=== PATIENT | female | born 2005 | race African-American/Black ===

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

== ENCOUNTER 2024-01-08 06:13 | Emergency (ER) | payer OTHER, SELFPAY ==
[2024-01-08] VITALS (8 sets, daily range): BP systolic 94–114; BP diastolic 65–91
[2024-01-08 07:03] LABS: % Basophils 0.5 % (0-2); % Eosinophils 1.9 % (0-6); % Immature Granulocytes 0.2 % (0-0.5); % Lymphocytes 41.6 % (20.5-51.1); % Monocytes 10.2 % (1.7-9.3); % Neutrophils 45.6 % (42.2-75.2); Absolute Eosinophils 0.1 10^3/uL (0-0.7); Absolute Lymphocytes 2.6 10^3/uL (1.2-3.4); Absolute Monocytes 0.7 10^3/uL (0.1-0.6); Absolute Neutrophils 2.9 10^3/uL (1.4-6.5); Hematocrit 46.1 % (37.0-47.0); Hemoglobin 16.1 g/dL (12.0-16.0); Mean Corp Hgb Conc. 34.9 g/dL (33.0-37.0); Mean Corpuscular Hgb 33.5 pg (27.0-31.0); Mean Corpuscular Volume 95.8 fL (81.0-99.0); Mean Platelet Volume 13.1 fL (7.4-10.4); Nucleated Red Blood Cells % 0 %; Platelet Count 162 10^3/uL (130-400); Red Blood Cell Count 4.81 10^6/uL (4.20-5.40); Red Cell Dist. Width 13.2 % (11.5-14.5); White Blood Cell Count 6.4 10^3/uL (4.8-10.8)
--- NOTE | 2024-01-08 07:22 | EDRN ---
resp messaged to come to bedside due low pulse ox 88-89%. Dr. Gonzalez made aware. Resp to suction and place on trach collar to help as pt decreased further to 85%.
[2024-01-08 07:34] LABS: Urine Albumin Negative (Neg - Trace); Urine Bilirubin Negative (Negative); Urine Character Clear (Clear); Urine Color Yellow; Urine Glucose Negative (Negative); Urine Ketone Negative (Negative); Urine Leukocyte 1+ (Negative); Urine Nitrite Negative (Negative); Urine Occult Blood Trace (Negative); Urine Urobilinogen Negative (Neg - 1+)
[2024-01-08] MEDS: KEPPRA 1000 MG IV ×2 (07:53→10:49)
[2024-01-08] MEDS: ATIVAN 1 MG IV ×2 (07:56→08:36)
[2024-01-08 08:21] LABS: Urine Bacteria Few (Negative)
[2024-01-08 08:22] LABS: Urine Red Blood Cell None Seen /HPF (0-2)
[2024-01-08 08:56] LABS: ALT (SGPT) 53 U/L (0-35); AST (SGOT) 36 U/L (14-36); Albumin 3.9 g/dl (3.5-5.0); Alkaline Phosphatase 145 U/L (38-126); Blood Urea Nitrogen 8 mg/dl (7-17); Calcium 9.7 mg/dl (8.4-10.2); Carbon Dioxide 33 mmol/L (22-30); Chloride 99 mmol/L (98-107); Glucose 79 mg/dl (70-99); Potassium 4.1 mmol/L (3.5-5.1); Sodium 141 mmol/L (135-145); Total Bilirubin 0.3 mg/dl (0.2-1.3); Total Protein 7.5 g/dl (6.3-8.2); eGFR > 60.00
--- NOTE | 2024-01-08 09:43 | ED.GENMED ---
Addendum entered and electronically signed by Carola Wall PA-C 01/11/24 07:47:
urine cx positive, sent to [facility]
faxed to [facility]
Original Note:
History of Present Illness
General
Chief Complaint: Seizure
Source: patient
Exam Limitations: none
Time Seen by Provider: 01/08/24 06:27
Nursing documentation reviewed up to this point in time: agreed with
History of Present Illness
History of Present Illness:
18-year-old female with a past medical history of encephalomalacia, seizure disorder, chronic trach/PEG who presents to the emergency room from pediatric specialty care center for evaluation of seizures. According to report from pediatric specialty
center patient has known history of seizures and this morning began having frequent 'cluster seizures'�they describe that she was having frequent episodes of rapid eye blinking and upper extremity tonic-clonic movements lasting about 10 seconds each
and happening every couple of minutes. She received her normal dose of vomiting this morning as well as diazepam x 2 (initial dose at 3:40 AM, second dose at 4:10 AM) still having seizures intermittently throughout the morning and so sent to the
ER. Has had some increased secretions. She also apparently has had issues with urinary retention recently had a Swartz that was removed and they have been doing intermittent straight catheterizations. Review of medication list shows that she takes
1500 mg Keppra daily in the a.m. and 1750 mg p.m.; she is also on clobazam 30 mg twice daily and as needed
Past History
Past History
ED Past Medical History: Seizures, Other (feeding tube, tracheostomy) and Other (Hydrocephalus)
ED Past Surgical History: Other (Feeding tube, tracheostomy)
Social History
Tobacco: Non-smoker
Alcohol: None
Drug: None
Personal: Single
Living: custodial
Review of Systems
Review of Systems
Unable to obtain full review of systems at this time due to: non-verbal
All Other Systems: Not applicable
Phy Exam
Physical Exam
Physical Exam:
General: Lying in bed alert, chronically ill appearing but not in acute distress
Head: Normocephalic, atraumatic
Eyes: Conjunctiva normal, pupils equal round and reactive to light bilaterally
Throat: Airway intact (tracheostomy in place), moist mucous membranes
Lungs: Clear to auscultation bilaterally, no wheezing, rales, rhonchi; frequent coughing with secretions frothing from tracheostomy
Heart: Regular rate and rhythm, no murmurs, gallops, or rubs
Abd: Soft, mild distention no apparent tenderness
Neuro: Alert, tracks with her eyes, nonverbal
Skin: no rash
Extremities: Warm well-perfused
Scores
Heart Failure Risk
Heart Failure Risk Score: Not Applicable
Heart Score for Chest Pain Patients
STEMI patient?: Not applicable
Withdrawal Assessment of Alcohol
Withdrawal Assessment Completed?: Not applicable
Course
Orders/Labs/Results
Orders:
Orders
01/08/24 06:54
Complete Blood Count/With Diff Urgent
01/08/24 06:55
CR Chest Portable - 1 View Urgent
Comment:
Reason For Exam: ^secretions, coughing
Reason Study Needs to be Portable: Unable to Transport
01/08/24 07:05
Urinalysis Reflex To Culture Urgent
Date Specimen was Collected: 01/08/24
Time Specimen was Collected: 07:02
Urine Microscopic Reflex Cult Urgent
Urine Culture Urgent
RAUL Source: U
Specimen Description:
Date Specimen was Collected: 01/08/24
Time Specimen was Collected: 07:02
01/08/24 07:43
Levetiracetam Injectable [Keppra] 1,000 mg IV NOW STA
Lorazepam [Ativan] 1 mg IV NOW STA
01/08/24 08:23
Comprehensive Metabolic Panel Urgent
01/08/24 08:31
Lorazepam [Ativan] 1 mg IV NOW STA
01/08/24 08:32
Lorazepam [Ativan] 2 mg .ROUTE .STK-MED ONE
01/08/24 09:50
CT Head W/o Iv Contrast Urgent
Comment:
Reason For Exam: status epilepticus
CR Abdomen - 1 View Urgent
Comment:
Reason For Exam: shunt series
01/08/24 10:01
Levetiracetam Injectable [Keppra] 1,000 mg IV NOW STA
01/08/24 10:44
COVID-19 Antigen Urgent
Source: Nasal Swab
Venous Blood Gas Urgent
%Oxygen/Room Air: 95
Influenza A+B Rapid Molecular Urgent
RAUL Source: Nasal Swab
Specimen Description:
Abnormal Lab Results
01/08/24 01/08/24 01/08/24
06:54 07:05 08:23
Hgb 16.1 H g/dL
(12.0-16.0)
MCH 33.5 H pg
(27.0-31.0)
MPV 13.1 H fL
(7.4-10.4)
Absolute Monos (auto) 0.7 H 10^3/uL
(0.1-0.6)
Monocytes % 10.2 H %
(1.7-9.3)
VBG pCO2
VBG HCO3
Carbon Dioxide 33 H mmol/L
(22-30)
Creatinine 0.4 L mg/dL
(0.6-1.0)
ALT 53 H U/L
(0-35)
Alkaline Phosphatase 145 H U/L
(38-126)
Ur Occult Blood Reflex Trace A
(Negative)
Leukocyte Esterase Rfl 1+ A
(Negative)
Urine Bacteria (Reflex) Few A
(Negative)
01/08/24
10:44
Hgb
MCH
MPV
Absolute Monos (auto)
Monocytes %
VBG pCO2 58 H mmHg
(35-48)
VBG HCO3 35.1 H mmol/L
(22-27)
Carbon Dioxide
Creatinine
ALT
Alkaline Phosphatase
Ur Occult Blood Reflex
Leukocyte Esterase Rfl
Urine Bacteria (Reflex)
01/08/24 06:54
01/08/24 08:23
Vital Signs
Initial and Last Documented VS:
Initial Vital Signs
Temp Pulse Resp BP Pulse Ox
36.5 C 98 22 108/77 94
01/08/24 06:15 01/08/24 06:15 01/08/24 06:15 01/08/24 06:15 01/08/24 06:15
Last Documented Vital Signs
Temp Pulse Resp BP Pulse Ox
36.5 C 52 17 100/81 97
01/08/24 06:15 01/08/24 12:15 01/08/24 12:00 01/08/24 12:00 01/08/24 12:00
MDM/Problems Addressed
Differential Diagnosis Includes:
Seizures: Hydrocephalus, breakthrough seizures, electrolyte derangement, infection
MDM/Problems Addressed:
18-year-old female with nonobstructive hydrocephalus, encephalomalacia, seizure disorder, chronic trach and PEG presents from pediatric specialty care center for seizures today. Refractory to home medications as well as diazepam x 2. Vitals and
exam as above�she was notably hypoxic on arrival here with significant secretions coming through her tracheostomy. Not actively seizing on arrival. She was suctioned for significant mucus out of the trach however remained hypoxic�suspect that she
likely aspirated at some point while seizing. Placed on trach collar with improvement in oxygenation. Will place an IV send labs including a CBC and a CMP. Will perform CT head and shunt series�to include chest x-ray to evaluate for signs of
pneumonia or large volume aspiration. Will send a urinalysis as well to screen for infection. Will reassess after the above.
Patient having seizure activity including rhythmic eye movements and upper extremity tonic-clonic activity�given Ativan. Will treat with Keppra as well.
Labs reviewed: CBC unremarkable, CMP no clinically significant maladies. Chest x-ray with no pneumonia. Awaiting CT head and abdominal x-ray. Urinalysis shows no infection.
Patient having additional seizure activity will give additional Ativan. Added additional Keppra for total of 2 g. She remains on oxygen support. At this point concern for status epilepticus and she has acute respiratory failure secondary to
suspected aspiration. Will plan for transfer to pediatric center.
Case discussed with [facility] transfer center�patient accepted for transfer by Dr. Banda. Requesting VBG as well as viral swabs. Will monitor pending transport.
CT head negative for any acute pathology�no signs of increased hydrocephalus. No signs of shunt fracture open additional imaging of shunt series. Transport arrived to take patient to [facility]. I did call the transfer center to update them on results
of EKG and viral swabs.
Chronic conditions affecting care:
Epilepsy, hydrocephalus
*Radiology
Radiology exam reviewed: preliminary read by ED provider and radiology read reviewed
*Pulse Oximetry
Patient hypoxic: no
*Critical Care Note
Total Time (30-74mins, 75-104mins- exclusive of procedures): 37
comment:
Critical care statement: A total of 37 minutes of critical care time was provided for this patient. This includes management of unstable vital signs, evaluation of the patient at bedside, frequent reassessment, discussion with
consultants/hospitalist, and review of pertinent medical records. This time was separate from time utilized to perform any aforementioned documented procedures
Data Reviewed
Review of Other/Old Records Reveals: Labs and Records
Source: records, ambulance crew and custodial
Patient Management
Discussion with other providers: County Assessor (Discussed with rough rib grader (PICU) at [facility])
Escalation/DeEscalation of care consider admission/obs:
Transfer to pediatric center
ED Attending Note
-
Portions of this chart may have been created with voice recognition software.� Occasional wrong word or��sound alike� substitutions may have occurred due to the inherent limitations of voice recognition software.
Discharge Plan
Departure
Patient Disposition: Pediatric Hospital
Date of Disposition: 01/08/24
Time of Disposition: 10:08
Discharge Problem:
Status epilepticus, Acute respiratory failure
Prescriptions:
No Action
chlorhexidine gluconate 15 ML mouthwash
15 ml MM BID@0400,2000
glycopyrrolate 1 mg Tablet
1.5 mg feeding tube TID
phenobarbital 64.8 MG tablet
64.8 mg feeding tube BID@0000,1200
diazepam 5 MG/5 ML solution
4 mg feeding tube TID@,,18
levetiracetam 100 MG/ML solution
1,500 mg feeding tube BID@0500
acetaminophen [Children's Acetaminophen] 160 MG/5 ML suspension
1 dose feeding tube Q6HPRN PRN (Reason: mild pain/fever)
Rx Instructions:
33-43.9kmml, >=44kmml
sennosides [senna] 8.6 MG tablet
17.2 mg feeding tube BID@0500,1700
polyethylene glycol 3350 17 GRAMS powder in packet
17 grams feeding tube BID@0500,1700
baclofen 20 MG tablet
20 mg feeding tube TID@00,,18
bisacodyl [OneLAX Bisacodyl] 10 MG suppository
10 mg [place] DAILYPRN PRN (Reason: if no bm x 48hrs)
calcium carbonate 500 MG/5 ML suspension
400 mg feeding tube BID@0600,1800
Fleet Pediatric 66 ML enema
59 ml VA DAILYPRN PRN (Reason: if no bm x 96hrs)
clobazam 10 MG tablet
30 mg feeding tube BID@0600,1800
albuterol sulfate 1 PUFF HFA aerosol inhaler
2 puff inhalation R Q2HPRN PRN (Reason: respiratory distress)
albuterol sulfate 1 PUFF HFA aerosol inhaler
2 puff inhalation R BID
miconazole nitrate [Antifungal (miconazole)] 2 % Cream
1 applic TOPICAL BID
sodium chloride 3 % Solution For Nebulization
4 ml INHALATION R Q2HPRN PRN (Reason: tracheal secretions)
Theragen Tablet
1 tab feeding tube DAILY@0000
enoxaparin [Lovenox] 30 mg/0.3 mL Syringe
37 mg SC BID
levetiracetam [Keppra] 100 mg/mL Solution
1,750 mg PO QPM@1700
cholecalciferol (vitamin D3) [Vitamin D3] 50 mcg (2,000 unit) Tablet
50 mcg feeding tube QPM
mometasone 100 mcg/actuation Hfa Aerosol Inhaler
1 inh INHALATION R BID
Valtoco 10 mg/spray (0.1 mL) [place],Non-Aerosol
10 mg INTRANASAL DAILYPRN PRN (Reason: seizure greater then 5minutes)
Referrals:
Celestino James DO [Family Provider] -
Hospital Transfer
Other hospital: [facility]
I certify that the patient requires transfer: Yes
Discussed case with accepting physician: Veronika Chase
Reason for transfer: higher level of care and specialties available
Interventions
Interventions:
*Risk Screen - Suicide Last Done: 01/08/24 06:15
*General Assessment Last Done: 01/08/24 06:15
*Neglect/Abuse Screening Last Done: 01/08/24 06:15
ED- Fall Risk Assessment Last Done: 01/08/24 06:46
*Nursing Disposition Last Done: 01/08/24 12:42
ED- Cardiac Assessment Last Done: 01/08/24 06:46
ED- Neurological Assessment Last Done: 01/08/24 06:46
ED- Pulmonary Assessment Last Done: 01/08/24 06:46
Discharge Date and Time
Discharge Date/Time: 01/08/24 12:45
Print Language: LATVIAN
[2024-01-08 10:52] LABS: Venous Blood Gas B.E. 7.5 mmol/L (-4 to +4); Venous Blood Gas HCO3 35.1 mmol/L (22-27); Venous Blood Gas O2 Sat % 82.1 %; Venous Blood Gas pCO2 58 mmHg (35-48); Venous Blood Gas pH 7.39 (7.32-7.43); Venous Blood Gas pO2 49 mmHg (30-50)
[2024-01-08 11:10] LABS: COVID-19 Antigen Negative (Negative)
== END 2024-01-08 12:45 | disposition designated cancer center or children's hospital (05) ==
LOC: EMR 06:13
PROVIDERS: EMERGENCY PHYSICIAN Emergency Medicine; FAMILY PHYSICIAN Pediatrics
DX: G40.901 Epilepsy, unspecified, not intractable, with status epilepticus (principal); J96.00 Acute respiratory failure, unspecified whether with hypoxia or hypercapnia; Z79.899 Other long term (current) drug therapy; Z93.0 Tracheostomy status
CPT/HCPCS: 99284; 70450; 71045; 74018; 80053; 81003; 81015; 82805; 85025; 87077; 87086; 87186; 87502; 87811

== ENCOUNTER 2024-04-04 02:07 | Emergency (ER) | payer OTHER, SELFPAY ==
[2024-04-04] VITALS (7 sets, daily range): BP systolic 81–108; BP diastolic 41–73
--- NOTE | 2024-04-04 02:11 | ED.GENMED ---
Addendum entered and electronically signed by Mark Herrera PA-C 04/07/24 09:58:
Patient transferred to [facility]. Urine culture with [id number] CFU E.Coli. Report faxed to [facility]
Original Note:
History of Present Illness
General
Chief Complaint: Pediatric- Seizure
Source: ambulance crew, correction records and previous hospital records
Exam Limitations: clinical condition and non verbal-adult
Time Seen by Provider: 04/04/24 02:10
History of Present Illness
History of Present Illness:
This is a 18-year-old female from pediatric specialty care that presents with continuous seizures. They first noticed the seizures around 11 PM when she received 4 mg of Valium by the nursing staff at the the facility. At 1220 she got 10 mg of
Valium. At 1240 she received 5 mg of intranasal Valium. EMS was called. At 1:40 AM she had 4 mg of intranasal Valium by EMS. Upon arrival patient continued to seize. She received 2 of midazolam and 2 g of Keppra. Patient has a tracheostomy and
a feeding tube. She is prone for UTIs.
Past History
Past History
ED Past Medical History: Seizures, Other (feeding tube, tracheostomy) and Other (Hydrocephalus)
ED Past Surgical History: Other (Feeding tube, tracheostomy)
Social History
Tobacco: Non-smoker
Alcohol: None
Drug: None
Personal: Single
Living: correction
Phy Exam
General Physical Exam
General Presentation: no apparent distress and other (Chronically ill-appearing)
General age: appears younger than age
General Skin: warm and dry
General Habitus: debilitated and frail
General Mental: usual mental status
General Hydration: appears well hydrated
General Chronic Disability: diapers and g-tube
ENT Exam
ENT Exam: tracheostomy
Eye Exam
Eye Exam: PERRL, cornea clear and conjunctiva normal
Cardiovascular Exam
Cardiovascular Exam: regular rate/rhythm, no edema, no murmur and normal peripheral pulses
Pulmonary Exam
Pulmonary Exam: lungs clear, no respiratory distress, no rales, no crackles, no rhonchi, no stridor, no wheezing and no cough
Gastrointestinal Exam
Gastrointestinal Exam: normal bowel sounds, non tender, soft, no organomegaly, no pulsatile mass and non distended
Neurological Exam
Neurological Exam: alert
Musculoskeletal Exam
Musculoskeletal Exam: other (Contractures, warm and well-perfused)
Skin Exam
Skin Exam: normal color, warm/dry, no rash and no petechia
Psychiatric Exam
Psychiatric Exam: normal mood/affect
Sepsis
Sepsis Screening
Sepsis Assessment: Sepsis Ruled Out
Sepsis Screen
Sepsis Screen: Sepsis Ruled Out
Date: 04/04/24
Time: 04:22
Course
Orders/Labs/Results
Orders:
Orders
04/04/24 02:18
Midazolam HCl [Versed] 2 mg .ROUTE .STK-MED ONE
04/04/24 02:20
Midazolam HCl [Versed] 2 mg IV NOW STA
04/04/24 02:26
Levetiracetam Injectable [Keppra] 2,000 mg IV NOW STA
04/04/24 02:33
Complete Blood Count/With Diff Urgent
Urinalysis Reflex To Culture Urgent
Date Specimen was Collected: 04/04/24
Time Specimen was Collected: 02:31
Urine Microscopic Reflex Cult Urgent
Urine Culture Urgent
RAUL Source: U
Specimen Description:
Date Specimen was Collected: 04/04/24
Time Specimen was Collected: 02:31
04/04/24 03:04
Swartz [Swartz Placement- Treatment] ONCE
Reason for insertion: Chronic Swartz on Admit
04/04/24 03:15
Midazolam HCl [Versed] 2 mg .ROUTE .STK-MED ONE
04/04/24 03:20
Midazolam HCl [Versed] 2 mg IV NOW STA
04/04/24 03:24
Comprehensive Metabolic Panel Urgent
04/04/24 03:35
COVID-19 Antigen Urgent
Source: Nasal Swab
Influenza A+B Rapid Molecular Urgent
RAUL Source: Nasal Swab
Specimen Description:
Date Specimen was Collected: 04/04/24
Time Specimen was Collected: 03:32
Respiratory Syncytial Virus Urgent
RAUL Source: Nasal Swab
Specimen Description:
Date Specimen was Collected: 04/04/24
Time Specimen was Collected: 03:32
04/04/24 04:10
CefTRIAXone [Rocephin] 1,000 mg IV NOW STA
Abnormal Lab Results
04/04/24 04/04/24
02:33 03:24
WBC 4.5 L 10^3/uL
(4.8-10.8)
Hgb 18.1 H g/dL
(12.0-16.0)
Hct 53.0 H %
(37.0-47.0)
MCV 101.3 H fL
(81.0-99.0)
MCH 34.6 H pg
(27.0-31.0)
MPV 14.2 H fL
(7.4-10.4)
Monocytes % 9.6 H %
(1.7-9.3)
BUN 6 L mg/dl
(7-17)
Creatinine 0.3 L mg/dL
(0.6-1.0)
ALT 39 H U/L
(0-35)
Alkaline Phosphatase 130 H U/L
(38-126)
Urine Nitrite (Reflex) Positive A
(Negative)
Urine Bacteria (Reflex) Many A
(Negative)
04/04/24 02:33
04/04/24 03:24
Vital Signs
Initial and Last Documented VS:
Initial Vital Signs
Temp Pulse Resp BP Pulse Ox
95.9 F L 90 27 108/73 93
04/04/24 02:10 04/04/24 02:10 04/04/24 02:10 04/04/24 02:10 04/04/24 02:10
Last Documented Vital Signs
Temp Pulse Resp BP Pulse Ox
95.9 F L 88 18 99/60 93
04/04/24 02:10 04/04/24 03:30 04/04/24 03:30 04/04/24 03:00 04/04/24 03:30
*Critical Care Note
Total Time (30-74mins, 75-104mins- exclusive of procedures): 40 (Critical care statement: A total of 40 minutes of critical care time was provided for this patient. This time is separate from time utilized to perform the aforementioned documented
procedures. Aggregate critical care time includes only time during which I was engaged in work directl)
ED Attending Note
-
Portions of this chart may have been created with voice recognition software.� Occasional wrong word or��sound alike� substitutions may have occurred due to the inherent limitations of voice recognition software.
Discharge Plan
Departure
Patient Disposition: [facility]
Date of Disposition: 04/04/24
Time of Disposition: 04:09
Discharge Problem:
Seizure, UTI (urinary tract infection)
Instructions: Seizures
Prescriptions:
No Action
chlorhexidine gluconate 15 ML mouthwash
15 ml MM BID@399,1999
glycopyrrolate 1 mg Tablet
1.5 mg feeding tube TID
phenobarbital 64.8 MG tablet
64.8 mg feeding tube BID@0000,1200
diazepam 5 MG/5 ML solution
4 mg feeding tube TID@00,06,18
levetiracetam 100 MG/ML solution
1,500 mg feeding tube BID@0500
acetaminophen [Children's Acetaminophen] 160 MG/5 ML suspension
1 dose feeding tube Q6HPRN PRN (Reason: mild pain/fever)
Rx Instructions:
33-43.9kmml, >=44kmml
sennosides [senna] 8.6 MG tablet
17.2 mg feeding tube BID@0500,1700
polyethylene glycol 3350 17 GRAMS powder in packet
17 grams feeding tube BID@0500,1700
baclofen 20 MG tablet
20 mg feeding tube TID@00,06,18
bisacodyl [OneLAX Bisacodyl] 10 MG suppository
10 mg PA DAILYPRN PRN (Reason: if no bm x 48hrs)
calcium carbonate 500 MG/5 ML suspension
400 mg feeding tube BID@0600,1800
Fleet Pediatric 66 ML enema
59 ml PA DAILYPRN PRN (Reason: if no bm x 96hrs)
clobazam 10 MG tablet
30 mg feeding tube BID@0600,1800
albuterol sulfate 1 PUFF HFA aerosol inhaler
2 puff inhalation R Q2HPRN PRN (Reason: respiratory distress)
albuterol sulfate 1 PUFF HFA aerosol inhaler
2 puff inhalation R BID
miconazole nitrate [Antifungal (miconazole)] 2 % Cream
1 applic TOPICAL BID
sodium chloride 3 % Solution For Nebulization
4 ml INHALATION R Q2HPRN PRN (Reason: tracheal secretions)
Theragen Tablet
1 tab feeding tube DAILY@0000
enoxaparin [Lovenox] 30 mg/0.3 mL Syringe
37 mg SC BID
levetiracetam [Keppra] 100 mg/mL Solution
1,750 mg PO QPM@1700
cholecalciferol (vitamin D3) [Vitamin D3] 50 mcg (2,000 unit) Tablet
50 mcg feeding tube QPM
mometasone 100 mcg/actuation Hfa Aerosol Inhaler
1 inh INHALATION R BID
Valtoco 10 mg/spray (0.1 mL) [place],Non-Aerosol
10 mg INTRANASAL DAILYPRN PRN (Reason: seizure greater then 5minutes)
Referrals:
Celestino James DO [Family Provider] -
Hospital Transfer
Other hospital: [facility].
I certify that the patient requires transfer: Yes
Discussed case with accepting physician: Joan Kam on behalf of [facility] Lind-accepting
Reason for transfer: higher level of care, medical necessity, availability of service and specialties available
Interventions
Interventions:
*Risk Screen - Suicide Last Done: 04/04/24 02:10
*General Assessment Last Done: 04/04/24 02:10
*Neglect/Abuse Screening Last Done: 04/04/24 02:10
*ED COVID-19 Vaccine History Last Done: 04/04/24 02:10
Discharge Date and Time
Print Language: MACEDONIAN
[2024-04-04] MEDS: VERSED 2 MG IV ×2 (02:20→03:20)
[2024-04-04] MEDS: KEPPRA 2000 MG IV (02:57)
[2024-04-04 02:58] LABS: % Basophils 0.7 % (0-2); % Eosinophils 2.7 % (0-6); % Immature Granulocytes 0.2 % (0-0.5); % Lymphocytes 38.3 % (20.5-51.1); % Monocytes 9.6 % (1.7-9.3); % Neutrophils 48.5 % (42.2-75.2); Absolute Eosinophils 0.1 10^3/uL (0-0.7); Absolute Lymphocytes 1.7 10^3/uL (1.2-3.4); Absolute Monocytes 0.4 10^3/uL (0.1-0.6); Absolute Neutrophils 2.2 10^3/uL (1.4-6.5); Hemoglobin 18.1 g/dL (12.0-16.0); Mean Corp Hgb Conc. 34.2 g/dL (33.0-37.0); Mean Corpuscular Hgb 34.6 pg (27.0-31.0); Mean Corpuscular Volume 101.3 fL (81.0-99.0); Mean Platelet Volume 14.2 fL (7.4-10.4); Nucleated Red Blood Cells % 0 %; Platelet Count 145 10^3/uL (130-400); Red Blood Cell Count 5.23 10^6/uL (4.20-5.40); Urine Albumin Negative (Neg - Trace); Urine Bilirubin Negative (Negative); Urine Character Slightly Cloudy (Clear); Urine Color Yellow; Urine Glucose Negative (Negative); Urine Ketone Negative (Negative); Urine Leukocyte Negative (Negative); Urine Nitrite Positive (Negative); Urine Occult Blood Negative (Negative); Urine Specific Gravity 1.015 (<1.030); Urine Urobilinogen Negative (Neg - 1+); White Blood Cell Count 4.5 10^3/uL (4.8-10.8)
--- NOTE | 2024-04-04 03:11 | EDRN ---
pt arrives with chronic indwelling church. per ems, facility noted to have decreased urine output throughout the day. pt bladder scanned for 620mL. verbal order to replace church by dr sam. pt with 12F indwelling church, when deflating church
balloon this rn noted that the church is marked for a 10cc balloon, pt hcurch balloon inflated with 5cc. church replaced with 12F church without difficulty, immediate output of clear yellow urine.
[2024-04-04 03:36] LABS: Urine Bacteria Many (Negative); Urine Red Blood Cell 0-2 /HPF (0-2)
--- NOTE | 2024-04-04 03:40 | EDRN ---
per facility pt spo2 normally around 93-95% on room air. pt spo2 noted to be dropping to 88% on room air. verbal order for blow by oxygen from dr ash. respiratory at bedside to place pt on blow by oxygen.
[2024-04-04 03:55] LABS: ALT (SGPT) 39 U/L (0-35); AST (SGOT) 28 U/L (14-36); Albumin 3.9 g/dl (3.5-5.0); Alkaline Phosphatase 130 U/L (38-126); Blood Urea Nitrogen 6 mg/dl (7-17); Calcium 9.5 mg/dl (8.4-10.2); Carbon Dioxide 28 mmol/L (22-30); Chloride 101 mmol/L (98-107); Glucose 91 mg/dl (70-99); Potassium 4.4 mmol/L (3.5-5.1); Sodium 138 mmol/L (135-145); Total Bilirubin 0.2 mg/dl (0.2-1.3); Total Protein 7.6 g/dl (6.3-8.2); eGFR > 60.00
[2024-04-04 04:06] LABS: COVID-19 Antigen Negative (Negative)
[2024-04-04] MEDS: ROCEPHIN 1000 MG IV (04:37)
--- NOTE | 2024-04-07 10:24 | ED.ADDNOTE ---
ED Addendum
ED Addendum
ED Addendum Note:
Culture Report faxed to [phone]
== END 2024-04-04 06:29 | disposition designated cancer center or children's hospital (05) ==
LOC: EMR 02:07
PROVIDERS: EMERGENCY PHYSICIAN Student in an Organized Health Care Education/Training Program; FAMILY PHYSICIAN Pediatrics
DX: R56.9 Unspecified convulsions (principal); N39.0 Urinary tract infection, site not specified; Z93.0 Tracheostomy status
CPT/HCPCS: 99291; 96374; 96375; 96376; 80053; 81003; 81015; 85025; 87077; 87086; 87186; 87502; 87807; 87811

== ENCOUNTER 2024-04-24 18:53 | Emergency (ER) | payer OTHER, SELFPAY ==
[2024-04-24] VITALS (11 sets, daily range): BP systolic 101–133; BP diastolic 66–91
--- NOTE | 2024-04-24 19:05 | EDRN ---
While RN was attempting IV access, pt. had another witnessed 5-10 second seizure w/ rapid blinking of eyes, rt. sided gaze, and muscle tensing. Dr. Swartz at bedside, verbal order given to give IM ativan, medication given per verbal orders.
--- NOTE | 2024-04-24 19:14 | ED.GENMED ---
History of Present Illness
General
Chief Complaint: Seizure
Source: records
Time Seen by Provider: 04/24/24 19:11
History of Present Illness
History of Present Illness:
18-year-old female with nonobstructive hydrocephalus, encephalomalacia, seizure disorder, chronic trach and PEG presents to the ED for reported recurrent seizures. As per EMS, patient suffered between 2 and 3 seizures on transport here each lasting
about 15 seconds. Patient was given 2.5 mg of Versed IM prior to presentation. On arrival to the emergency department I was called to the room because patient was having a witnessed seizure, and upon my arrival it had aborted. Pulse ox stable.
Patient has had similar episodes in the past related to UTI.
Past History
Past History
ED Past Medical History: Seizures, Other (feeding tube, tracheostomy) and Other (Hydrocephalus, encephalomalacia)
ED Past Surgical History: Other (Feeding tube, tracheostomy)
Social History
Tobacco: Non-smoker
Alcohol: None
Drug: None
Personal: Single
Living: group home
Phy Exam
Physical Exam
Physical Exam:
GENERAL: Alert , in no apparent distress
EYE: pupils equal and reactive
NECK: Supple, no significant adenopathy, trach i place without bleeding.
ENT: o/p clr, mmm.
CARDIAC: Regular rate and rhythm .
LUNGS: Equal breath sounds bilaterally, no acute respiratory distress, no wheezes/rales, occas rhonchi
ABDOMEN: Soft, without focal tenderness, no r/g PEG tube noted
NEUROLOGICAL: awake nonverbal tracks with eyes
SKIN: Warm and dry, skin intact.
MUSCULOSKELETAL: No edema, well perfused.
PSYCH:nonverbal
Course
Orders/Labs/Results
Orders:
Orders
04/24/24 19:00
Lorazepam [Ativan] 2 mg .ROUTE .STK-MED ONE
Lorazepam [Ativan] 2 mg IM NOW STA
04/24/24 19:13
Cardiac Monitoring- Treatment ONCE
Straight cath- Treatment ONCE
Pulse Ox/cont/shift [RESP] Urgent
Quantity: 1
04/24/24 19:39
COVID-19 Antigen Urgent
Source: Nasal Swab
Complete Blood Count/With Diff Urgent
Comprehensive Metabolic Panel Urgent
Influenza A+B Rapid Molecular Urgent
RAUL Source: Nasal Swab
Specimen Description:
04/24/24 20:22
Urinalysis Reflex To Culture Urgent
Date Specimen was Collected: 04/24/24
Time Specimen was Collected: 20:21
Urine Microscopic Reflex Cult Urgent
Urine Culture Urgent
RAUL Source: U
Specimen Description:
Date Specimen was Collected: 04/24/24
Time Specimen was Collected: 20:21
Abnormal Lab Results
04/24/24 04/24/24
19:39 20:22
Hct 48.1 H %
(37.0-47.0)
MCV 104.1 H fL
(81.0-99.0)
MCH 34.2 H pg
(27.0-31.0)
MCHC 32.8 L g/dL
(33.0-37.0)
MPV 12.0 H fL
(7.4-10.4)
Neutrophils % 37.3 L %
(42.2-75.2)
Lymphocytes % 52.5 H %
(20.5-51.1)
Carbon Dioxide 32 H mmol/L
(22-30)
Creatinine 0.3 L mg/dL
(0.6-1.0)
ALT 37 H U/L
(0-35)
Total Protein 8.5 H g/dl
(6.3-8.2)
Urine Nitrite (Reflex) Positive A
(Negative)
Urine Bacteria (Reflex) Many A
(Negative)
04/24/24 19:39
04/24/24 19:39
Vital Signs
Initial and Last Documented VS:
Initial Vital Signs
Temp Pulse Resp BP Pulse Ox
97.8 F 83 24 110/66 98
04/24/24 18:59 04/24/24 18:59 04/24/24 18:59 04/24/24 18:59 04/24/24 18:59
Last Documented Vital Signs
Temp Pulse Resp BP Pulse Ox
97.8 F 68 15 110/74 100
04/24/24 18:59 04/24/24 21:45 04/24/24 21:30 04/24/24 21:30 04/24/24 21:45
Update Note
Update Note:
Patient presents to the Emergency Department with recurrent seizures____
Number and Complexity of Problems Addressed at the Encounter
� Chronic conditions affecting care:
� Acute Exacerbation and/or Progression of Chronic Illness:
� Differential Diagnosis includes: But not limited to status epilepticus, UTI, etc. etc.
Amount and/or Complexity of Data to be Reviewed and Analyzed
� I performed an independent evaluation of and my interpretation is:
EKG:
CT:
Xrays:
Laboratory Studies:Generally unremarkable
Other:
� Review of other/old records reveals: Multiple presentations in the past for similar events
� Clinical information was obtained by an independent historian:
� Prescriptions/Medications Considered but not given:
� Further testing considered but not performed:
Risk of Complications and/or Morbidity or Mortality of Patient Management
� Social determinants of health affecting care:
� Discussion with other providers (PCP, Hospitalists, Consultants, etc):
� Escalation of care including admission/observation vs risk of discharge considered:Patient remained stable here, vitals within normal limits, resting comfortably. Does open eyes to noxious stimuli. Case discussed with [facility]
neurology, they do not feel patient needs to be transferred there, will call me back with recommendations regarding antiepileptic medication modifications.
ED Attending Note
-
Portions of this chart may have been created with voice recognition software.� Occasional wrong word or��sound alike� substitutions may have occurred due to the inherent limitations of voice recognition software.
Discharge Plan
Departure
Patient Disposition: Other
Date of Disposition: 04/24/24
Time of Disposition: 22:12
Patient with high blood pressure during this ER visit?: No
Condition: Good
Discharge Problem:
Seizures
Instructions: Seizures, Adult (DC)
Prescriptions:
No Action
chlorhexidine gluconate 15 ML mouthwash
15 ml MM BID@0400,2000
glycopyrrolate 1 mg Tablet
1.5 mg feeding tube TID
phenobarbital 64.8 MG tablet
64.8 mg feeding tube BID@0000,1200
diazepam 5 MG/5 ML solution
4 mg feeding tube TID@,
levetiracetam 100 MG/ML solution
1,500 mg feeding tube BID@0500
acetaminophen [Children's Acetaminophen] 160 MG/5 ML suspension
1 dose feeding tube Q6HPRN PRN (Reason: mild pain/fever)
Rx Instructions:
33-43.9kmml, >=44kmml
sennosides [senna] 8.6 MG tablet
17.2 mg feeding tube BID@0500,1700
polyethylene glycol 3350 17 GRAMS powder in packet
17 grams feeding tube BID@0500,1700
baclofen 20 MG tablet
20 mg feeding tube TID@00,,18
bisacodyl [OneLAX Bisacodyl] 10 MG suppository
10 mg IN DAILYPRN PRN (Reason: if no bm x 48hrs)
calcium carbonate 500 MG/5 ML suspension
400 mg feeding tube BID@0600,1800
Fleet Pediatric 66 ML enema
59 ml IN DAILYPRN PRN (Reason: if no bm x 96hrs)
clobazam 10 MG tablet
40 mg feeding tube BID@0600,1800
albuterol sulfate 1 PUFF HFA aerosol inhaler
2 puff inhalation R Q2HPRN PRN (Reason: respiratory distress)
albuterol sulfate 1 PUFF HFA aerosol inhaler
2 puff inhalation R BID
miconazole nitrate [Antifungal (miconazole)] 2 % Cream
1 applic TOPICAL BID
sodium chloride 3 % Solution For Nebulization
4 ml INHALATION R Q2HPRN PRN (Reason: tracheal secretions)
Theragen Tablet
1 tab feeding tube DAILY@0000
enoxaparin [Lovenox] 30 mg/0.3 mL Syringe
37 mg SC BID
levetiracetam [Keppra] 100 mg/mL Solution
1,750 mg PO QPM@1700
cholecalciferol (vitamin D3) [Vitamin D3] 50 mcg (2,000 unit) Tablet
50 mcg feeding tube QPM
mometasone 100 mcg/actuation Hfa Aerosol Inhaler
1 inh INHALATION R BID
Valtoco 10 mg/spray (0.1 mL) [place],Non-Aerosol
10 mg INTRANASAL DAILYPRN PRN (Reason: seizure greater then 5minutes)
midazolam 5 mg/spray (0.1 mL) [place],Non-Aerosol
2 spray INTRANASAL ONCE PRN (Reason: seizures )
Rx Instructions:
seizure >5 min or >5 cluster seizures in 1 hour
Referrals:
Celestino James DO [Family Provider] -
Activity Restrictions/Additional Instructions:
YOU SHOULD INCREASE YOUR KEPPRA DOSE TO 2 GM TWICE A DAY. FOLLOW UP WITH YOUR NEUROLOGIST THIS WEEK.
Interventions
Interventions:
*Risk Screen - Suicide Last Done: 04/24/24 18:59
*General Assessment Last Done: 04/24/24 18:59
*Neglect/Abuse Screening Last Done: 04/24/24 18:59
*ED COVID-19 Vaccine History Last Done: 04/24/24 18:59
ED- Cardiac Assessment Last Done: 04/24/24 19:49
ED- Neurological Assessment Last Done: 04/24/24 19:49
ED- Pulmonary Assessment Last Done: 04/24/24 19:49
Discharge Date and Time
Print Language: AMHARIC
[2024-04-24] MEDS: ATIVAN 2 MG IM (19:15)
[2024-04-24 19:57] LABS: Hematocrit 48.1 % (37.0-47.0); Hemoglobin 15.8 g/dL (12.0-16.0); Mean Corp Hgb Conc. 32.8 g/dL (33.0-37.0); Mean Corpuscular Hgb 34.2 pg (27.0-31.0); Mean Corpuscular Volume 104.1 fL (81.0-99.0); Platelet Count 306 10^3/uL (130-400); Red Blood Cell Count 4.62 10^6/uL (4.20-5.40); Red Cell Dist. Width 12.5 % (11.5-14.5); White Blood Cell Count 6.5 10^3/uL (4.8-10.8)
[2024-04-24 20:01] LABS: ALT (SGPT) 37 U/L (0-35); AST (SGOT) 28 U/L (14-36); Albumin 4.4 g/dl (3.5-5.0); Alkaline Phosphatase 119 U/L (38-126); Blood Urea Nitrogen 8 mg/dl (7-17); Calcium 9.8 mg/dl (8.4-10.2); Carbon Dioxide 32 mmol/L (22-30); Chloride 98 mmol/L (98-107); Glucose 77 mg/dl (70-99); Potassium 4.3 mmol/L (3.5-5.1); Sodium 138 mmol/L (135-145); Total Bilirubin 0.4 mg/dl (0.2-1.3); Total Protein 8.5 g/dl (6.3-8.2); eGFR > 60.00
[2024-04-24 20:15] LABS: COVID-19 Antigen Negative (Negative)
[2024-04-24 20:24] LABS: % Basophils 1.2 % (0-2); % Eosinophils 1.5 % (0-6); % Immature Granulocytes 0.2 % (0-0.5); % Lymphocytes 52.5 % (20.5-51.1); % Monocytes 7.3 % (1.7-9.3); % Neutrophils 37.3 % (42.2-75.2); Absolute Basophils 0.1 10^3/uL (0-0.2); Absolute Eosinophils 0.1 10^3/uL (0-0.7); Absolute Lymphocytes 3.4 10^3/uL (1.2-3.4); Absolute Monocytes 0.5 10^3/uL (0.1-0.6); Absolute Neutrophils 2.4 10^3/uL (1.4-6.5); Nucleated Red Blood Cells % 0 %
[2024-04-24 20:41] LABS: Urine Albumin Negative (Neg - Trace); Urine Bilirubin Negative (Negative); Urine Character Clear (Clear); Urine Color Yellow; Urine Glucose Negative (Negative); Urine Ketone Negative (Negative); Urine Leukocyte Negative (Negative); Urine Nitrite Positive (Negative); Urine Occult Blood Negative (Negative); Urine Urobilinogen Negative (Neg - 1+)
[2024-04-24 21:02] LABS: Urine Squamous Cell 0-2 /LPF (Few)
[2024-04-24 21:03] LABS: Urine Bacteria Many (Negative); Urine Red Blood Cell 0-2 /HPF (0-2); Urine White Cell 0-2 /HPF (0-5)
[2024-04-25] VITALS: BP 101/68
[2024-04-25 00:30] VITALS: BP 114/86
== END 2024-04-25 01:45 | disposition other institution (70) ==
LOC: EMR 18:53
PROVIDERS: EMERGENCY PHYSICIAN Emergency Medicine; FAMILY PHYSICIAN Pediatrics
DX: R56.9 Unspecified convulsions (principal); Z11.52 Encounter for screening for COVID-19; Z87.440 Personal history of urinary (tract) infections
CPT/HCPCS: 99284; 96372; 80053; 81003; 81015; 85025; 87086; 87502; 87811; 93005